=== PATIENT | female | born 1945 | race Caucasian/White ===

== ENCOUNTER 2016-08-31 09:25 | Emergency (ER) | payer MEDICARE, BC ==
[~2016-08-31] VITALS: Ht 162.6 cm; Wt 102.1 kg
[2016-08-31] MEDS ORDERED: NKM (09:39)
[2016-08-31 10:00] VITALS: BP 170/87
[2016-08-31] MEDS ORDERED: Ketorolac 30mg Inj IV ONE (10:30)
[2016-08-31 10:38] LABS: BASOPHILS % (AUTO) 1.4 % (0.0-2.0); EOSINOPHILS % (AUTO) 0.9 % (0.0-3.0); LYMPHOCYTES % (AUTO) 21.9 % (20.0-45.0); MEAN CORPUSCULAR HEMOGLOBIN 29.2 PG (27.0-31.0); MEAN CORPUSCULAR HGB CONC 31.8 G/DL (32.0-36.0); MEAN CORPUSCULAR VOLUME 92 FL (80-99); MEAN PLATELET VOLUME 10.1 FL (6.5-10.1); MONOCYTES % (AUTO) 3.3 % (1.0-10.0); NEUTROPHILS % (AUTO) 72.6 % (45.0-75.0); PLATELET COUNT 224 K/UL (150-450); RED BLOOD COUNT 5.22 M/UL (4.20-5.40); RED CELL DISTRIBUTION WIDTH 13.7 % (11.6-14.8); WHITE BLOOD COUNT 13.3 K/UL (4.8-10.8)
[2016-08-31 10:50] LABS: ALANINE AMINOTRANSFERASE 14 U/L (3-33); ALBUMIN/GLOBULIN RATIO 1.3 (1.0-2.7); ANION GAP 12 (5-15); ASPARTATE AMINO TRANSFERASE 15 U/L (5-40); CALCIUM 8.9 mg/dL (8.6-10.2); CARBON DIOXIDE 24 mEQ/L (20-30); CHLORIDE 106 mEQ/L (98-107); CREATININE 0.6 mg/dL (0.5-0.9); GLOMERULAR FILTRATION RATE > 60 mL/min (>60); HEMOLYSIS 4; POTASSIUM 4.6 mEQ/L (3.4-4.9); SODIUM 142 mEQ/L (135-145); TOTAL PROTEIN 6.9 g/dL (6.6-8.7)
[2016-08-31 12:00] VITALS: BP 151/98
[2016-08-31] MEDS ORDERED: ROBAXIN-750750 MG PO (12:54)
[2016-08-31] MEDS ORDERED: IBUPROFEN600 MG ORAL (12:54)
[2016-08-31 13:33] VITALS: BP 141/63
[2016-08-31] MEDS ORDERED: Oxycodone/Acetaminophen 5-325 ORAL ONE (13:45)
--- NOTE | 2016-08-31 14:10 | Emergency Room Report ---
History of Present Illness General Chief Complaint: Pain Source: Patient Present Illness HPI 71 YO F presents with 2 days left lower leg pain, worse with movement, worse lying on the left side. pain shoots from thigh all the way down leg. States foot "Feels numb." Denies associated weakness in extremities, urinary/fecal incontinence, IVDU, fever/chills, urinary complaints. Denies smoking, history of DVT/PE in self or family, denies oral contraceptive. Denies trauma/fall. Didnt take anything for pain. Allergies: Coded Allergies: No Known Allergies (Unverified , 08/31/16) Patient History Past Medical History: none Past Surgical History: none Social History: Denies: alcohol use, drug use, smoking Now: No Immunizations: UTD Reviewed Nursing Documentation: PMH: Agreed, PSxH: Agreed Nursing Documentation-PMH Past Medical History: No History, Except For Hx Hypertension: Yes - Back surgery Hx Pacemaker: No Hx Asthma: No Hx COPD: No Hx Diabetes: No Hx Cancer: No Hx Gastrointestinal Problems: No Hx Dialysis: No History Of Psychiatric Problem: No Hx Neurological Problems: No Hx Cerebrovascular Accident: No Hx Seizures: No Review of Systems All Other Systems: negative except mentioned in HPI Physical Exam Vital Signs Date Time Temp Pulse Resp B/P Pulse Ox O2 Delivery O2 Flow Rate FiO2 08/31/16 09:33 97.5 79 16 163/95 92 Room Air Sp02 EP Interpretation: reviewed, normal General Appearance: normal inspection, well appearing, no apparent distress, alert Head: atraumatic ENT: normal ENT inspection, hearing grossly normal, normal voice Neck: normal inspection, full range of motion, supple, no bony tend Respiratory: normal inspection, lungs clear, normal breath sounds, no respiratory distress, no retraction, no wheezing Cardiovascular #1: regular rate, rhythm, no edema Gastrointestinal: normal inspection, normal bowel sounds, non tender, soft, no guarding, no hernia Genitourinary: no CVA tenderness Musculoskeletal: normal inspection, back normal, normal range of motion, non- tender, no calf tenderness, Kaushal's Sign negative, other - Left lower extremity : Different areas of focal ttp to soft thigh, calf muscles. Full ROM intact. No compartment ttp. No calf swelling. No overyling erythema or sign of infection. Neurologic: normal inspection, alert, oriented x3, responsive, dye house hand III-XII nml as tested, motor strength/tone normal, speech normal Psychiatric: normal inspection, judgement/insight normal, mood/affect normal Skin: normal inspection, normal color, no rash Medical Decision Making Diagnostic Impression: Primary Impression: Musculoskeletal pain of left lower extremity ER Course 71 YO F with left lower extremity pain. Atraumatic. VS notable for HTN. No focal neuro deficits. No sign of infection. Compartments are all soft. - unlikely acute CVA as patient has no focal neuro deficit. No focal weakness. Strength 4/5. Sensation intact. - Unlikely rhabdo as CK is WNL. No WILFREDO. - Unlikely compartment syndrome as compartments of left leg are soft. - D-dimer was elevated but ultrasound ruled out DVT Analgesia provided, improved symptoms and ambulation. Advised rest, analgesia and PMD followup or return to ER for worsening symptoms Plan also discussed with patient's daughter bedside Last Vital Signs Date Time Temp Pulse Resp B/P Pulse Ox O2 Delivery O2 Flow Rate FiO2 08/31/16 13:33 74 14 141/63 98 Room Air 08/31/16 11:35 97.5 Status: improved Disposition: HOME, SELF-CARE Condition: Improved Scripts Ibuprofen* (MOTRIN*) 600 Mg Tablet 600 MG ORAL THREE TIMES A DAY, #30 TAB 0 Refills Prov: NATALIA ZELAYA M.D. 08/31/16 Methocarbamol* (ROBAXIN-750*) 750 Mg Tablet 750 MG PO TID, #30 TAB 0 Refills Prov: NATALIA ZELAYA M.D. 08/31/16 Patient Instructions: Musculoskeletal Pain Additional Instructions: - Please follow up with your primary care doctor in 1 week for evaluation of re- starting Blood Pressure medication - Take Ibuporfen with Robaxin up to 3x a day with food for lower leg pain NATALIA ZELAYA M.D. Aug 31, 2016 14:10
--- NOTE | 2016-09-02 17:06 | Diagnostic Imaging Report ---
APPROVED REPORT CPT Code: 58532 Present Symptoms Lower Extremity Pain: Left LEFT LEG: Venous imaging reveals a patent deep venous system. There is no evidence of thrombus within the femoral, popliteal or tibial segments. The greater saphenous vein is also within normal limits. Doppler indicates normal spontaneous flow within these segments.
== END 2016-08-31 13:33 | disposition home or self-care (01) ==
LOC: EMR 10:30
DX: M79.662 Pain in left lower leg (principal); I10 Essential (primary) hypertension
CPT/HCPCS: 36415; 80053; 82550; 85025; 85379; 93971; 96374; 99284; J1885